=== PATIENT | male | born 1990 | race Caucasian/White ===

== ENCOUNTER 2018-05-07 09:16 | Emergency (ER) | payer BC, MEDICAID, OTHER ==
[~2018-05-07] VITALS: Ht 180.3 cm; Wt 99.8 kg
[2018-05-07 10:46] LABS: CALCIUM 9.5 mg/dL (8.5-10.1); CREATININE 0.9 mg/dL (0.7-1.3); POTASSIUM 3.8 mmol/L (3.5-5.1)
[2018-05-07 11:08] LABS: ABSOLUTE NEUTROPHILS 3.9 thou/uL (1.4-8.2); BASOPHILS 0.5 % (0.0-2.0); EOSINOPHILS 1.2 % (0.0-3.0); LYMPHOCYTES 24.4 % (24.0-44.0); MCH 29.6 pg (26.0-34.0); MCHC 34.1 g/dL (28.0-37.0); MCV 86.6 fL (80.0-100.0); MONOCYTES 9.3 % (1.0-8.0); PLATELET COUNT 180 thou/uL (150-400); POLYS 64.6 % (36.0-66.0); RBC 5.08 mil/uL (4.50-6.00); RDW 13.6 % (10.5-14.5); WBC 6.1 thou/uL (4.0-11.0)
[2018-05-07] MEDS ORDERED: CLEOCIN HCL150 MG PO (12:49)
[2018-05-07] MEDS ORDERED: NORCO 5-325 TA1 EACH PO (12:49)
[2018-05-07] MEDS ORDERED: NAPROSYN500 MG PO (12:49)
[2018-05-07] MEDS ORDERED: SENNA-DOCUSATE1 EACH PO (12:49)
[2018-05-07 13:06] VITALS: BP 141/70
== END 2018-05-07 13:08 | disposition home or self-care (01) ==
LOC: ER 09:16
PROVIDERS: Emergency Medicine
DX: T81.40XA Infection following a procedure, unspecified, initial encounter (principal); I10 Essential (primary) hypertension